=== PATIENT | male | born 2000 | race Caucasian/White ===

== ENCOUNTER 2023-11-21 13:47 | Emergency (ER) | payer OTHER ==
[~2023-11-21] VITALS: Ht 177.8 cm; Wt 84.1 kg
[2023-11-21 13:54] VITALS: TEMP 98.4
[2023-11-21 14:21] LABS: BASO % 0.4 % (0.0-2.0); EOS # 0.1 K/mm3 (0.0-0.7); EOS % 0.9 % (0.0-4.0); GRAN # 5.6 K/mm3 (1.4-6.5); GRAN % 66.4 % (42.2-75.2); HEMATOCRIT 47.1 % (42.0-52.0); HEMOGLOBIN 16.7 g/dl (13.5-18.0); LYMPH % 23.5 % (20.0-51.0); MEAN CELL VOLUME 85 fl (80.0-100.0); MEAN CORPUSCULAR HEMOGLOBIN 30 pg (27-31); MEAN CORPUSCULAR HGB CONC 36 g/dl (33.0-37.0); MEAN PLATELET VOLUME 10.9 fl (7.4-10.4); MONO # 0.7 K/mm3 (0.1-0.6); MONO % 8.6 % (1.7-9.3); PLATELET COUNT 249 K/mm3 (130-400); RED BLOOD COUNT 5.52 M/mm3 (4.20-5.60); REDCELL DISTRIBUTION WIDTH-CV 12.4 % (11.5-14.5)
[2023-11-21 14:34] LABS: C-REACTIVE PROTEIN 0.07 mg/dL (0.00-0.50)
[2023-11-21 14:38] LABS: ALBUMIN 4.3 g/dL (3.5-5.0); CALCIUM 9.1 mg/dL (8.4-10.2); CREATININE, serum 0.88 mg/dL (0.72-1.25); POTASSIUM 3.8 mEq/L (3.5-4.5); TOTAL PROTEIN 7.4 g/dl (6.2-8.1)
[2023-11-21 14:50] LABS: BILIRUBIN,TOTAL 0.6 mg/dL (0.2-1.2)
[2023-11-21 14:58] LABS: TSH w REFLEX 0.817 uIU/mL (0.350-4.940)
[2023-11-21 15:45] VITALS: BP 125/81; PULSE 62
== END 2023-11-21 16:04 | disposition home or self-care (01) ==
LOC: COL.ER 13:47
PROVIDERS: Family Medicine
DX: R00.2 Palpitations (principal); R07.89 Other chest pain